=== PATIENT | male | born 1980 | race Caucasian/White ===

== ENCOUNTER 2022-06-30 08:45 | Outpatient (CLI) | payer BC, SELFPAY ==
[2022-06-30 09:39] LABS: Basophils Absolute Auto 0.1 K/mm3 (0.0-0.1); Basophils Percent Auto 0.7 % (0.2-1.2); Eosinophils Absolute Auto 0.3 K/mm3 (0-0.3); Hematocrit 47.4 % (42.0-52.0); Hemoglobin 15.5 g/dL (14.0-18.0); Immature Granulocyte Absolute 0.03 K/mm3 (0.00-0.031); Immature Granulocyte Percent A 0.4 % (0-0.5); Lymphocytes Absolute Auto 2.43 K/mm3 (0.9-3.2); Lymphocytes Percent Auto 29.7 % (18.3-44.2); Mean Corpuscular HGB Conc 32.7 g/dl (32-36); Mean Corpuscular Hemoglobin 27.5 pg (26-34); Mean Corpuscular Volume 84.2 fl (80-100); Monocytes Absolute Auto 0.7 K/mm3 (0.1-0.6); Monocytes Percent Auto 8.2 % (2.6-8.5); Neutrophils Absolute Auto 4.7 K/mm3 (1.3-6.7); Platelet Count Result 225 k/mm3 (150-375); Red Blood Count 5.63 M/mm3 (4.6-6.20); Red Cell Distribution Width 12.4 % (11.5-14.5); White Blood Count 8.2 K/mm3 (4.5-10.0)
[2022-06-30 09:51] LABS: Alanine Aminotransferase 33 U/L (6-50); Albumin Level 5.1 g/dL (3.5-5.1); Alkaline Phosphatase 97 U/L (38-126); Anion Gap 12 mmol/L (8-16); Aspartate Amino Transferase 28 U/L (17-59); Bilirubin,Total 0.7 mg/dL (0.2-1.3); Blood Urea Nitrogen 15 mg/dL (9-20); Calcium 9.1 mg/dL (8.4-10.2); Carbon Dioxide 29 mmol/L (22-30); Chloride 95 mmol/L (98-107); Cholesterol 226 mg/dL (0-200); Estimated Glomerular Filt Rate > 60; Glucose 98 mg/dL (65-110); HDL Direct 40 mg/dL; Potassium 4.2 mmol/L (3.4-5.0); Sodium 136 mmol/L (137-145); Triglycerides 179 mg/dL (<150)
[2022-06-30 10:02] LABS: LDL Cholesterol Direct 135 mg/dL
== END 2022-06-30 08:46 | disposition home or self-care (01) ==
PROVIDERS: PCP Family Medicine; Visit Provider Family Medicine
DX: I10 Essential (primary) hypertension (principal); E03.9 Hypothyroidism, unspecified; E78.2 Mixed hyperlipidemia
CPT/HCPCS: 36415; 80053; 80061; 84443; 85025

== ENCOUNTER 2022-10-21 08:13 | Outpatient (CLI) | payer BC, SELFPAY ==
[2022-10-21 10:09] LABS: Alanine Aminotransferase 25 U/L (6-50); Albumin Level 4.8 g/dL (3.5-5.1); Alkaline Phosphatase 96 U/L (38-126); Anion Gap 7 mmol/L (8-16); Aspartate Amino Transferase 25 U/L (17-59); Bilirubin,Total 0.8 mg/dL (0.2-1.3); Blood Urea Nitrogen 25 mg/dL (9-20); Calcium 8.4 mg/dL (8.4-10.2); Carbon Dioxide 27 mmol/L (22-30); Chloride 102 mmol/L (98-107); Cholesterol 216 mg/dL (0-200); Estimated Glomerular Filt Rate > 60; Glucose 96 mg/dL (65-110); HDL Direct 40 mg/dL; Potassium 4.1 mmol/L (3.4-5.0); Sodium 136 mmol/L (137-145); Triglycerides 78 mg/dL (<150)
[2022-10-21 10:20] LABS: LDL Cholesterol Direct 127 mg/dL
== END 2022-10-21 08:14 | disposition home or self-care (01) ==
PROVIDERS: PCP Family Medicine; Visit Provider Family Medicine
DX: I10 Essential (primary) hypertension (principal); E78.2 Mixed hyperlipidemia
CPT/HCPCS: 36415; 80053; 80061

== ENCOUNTER 2025-03-22 09:51 | Outpatient (CLI) | payer BC, SELFPAY ==
--- OUTSIDE RECORDS SUMMARY | 2025-03-22 09:54 | XMS_ITS | Continuity of Care Document ---
Author Name [facility] Organization [facility] Care Team Providers Care Rn Cardiovascular Name Role Phone [facility] Unavailable Unavailable Problems Combined list of problems from Department of Defense and Veterans Affairs facilities. It does not include entries that were removed or entered in error. Problem Status Onset Date Problem Type Date of Resolution Comments Source Adjustment Disorder with mixed Anxiety and depressed mood (ICD-9-CM 309.28) Active Condition [facility] Anxiety disorder Active Condition . [facility] Chest pain (SNOMED CT 72592906) Active Condition [facility] Irritability (ICD-9-CM 799.22) Active Condition [facility] Osteoarthritis * (ICD-9-CM 715.90) Active Condition [facility] Smoker (SNOMED CT 92971031) Active Condition [facility] Patient Education - Injury Prevention Active Condition [facility] visit for: ears / hearing exam Active Condition [facility] visit for: routine eye exam Active Condition [facility] Antibody Immunization Response Active Condition [facility] visit for: laboratory Active Condition [facility] visit for: screening exam pulmonary tuberculosis Active Condition [facility] Vaccines Prophylactic Need Against Bacterial Diseases Inactive Condition [facility] Vaccines Prophylactic Need Against Td Inactive Condition [facility] visit for: services physical Active Condition [facility] ASSESS PATIENT CONDITION WORK-RELATED OCCUPATIONAL DISEASE Active Condition [facility] PARTNER RELATIONAL PROBLEM Inactive Condition [facility] PARENT / CHILD PROBLEM Inactive Condition [facility] Patient Education - HIV Inactive Condition [facility] visit for: screening exam infectious disease Active Condition [facility] PATELLOFEMORAL SYNDROME Active Condition [facility] PATELLOFEMORAL SYNDROME RIGHT Active Condition paperwork completed [facility] ILIOTIBIAL BAND FRICTION SYNDROME Active Condition [facility] COMMON COLD Inactive Condition A-Pt wit h viral URI symptomsP-Will give decong/antihist for symptomatic treatment-Throa t cx done will await results and treat if needed [facility] visit for: screening exam ear disorders Inactive Condition [facility] Blood Pressure Isolated Elevated Inactive Condition 5 day BP check [facility] NICOTINE DEPENDENCE Inactive Condition referred to smoking cessation. [facility] GUM NEOPLASM - LOWER GUM Inactive Condition [facility] TENDONITIS ROTATOR CUFF Active Condition PT EDUCATED. STEROID INJECTION TODAY.SHOULDER REST X 7-10 DAYS, THEN RESUME THERAPY.F/U 2-3 WEEKS FOR RE-EVALUATION. DoD Other Physical Therapy Active Condition [facility] CLOSED FRACTURE OF CARPAL BONE(S) - SCAPHOID Active Condition Proximal pole, non-union, asymptomatic at this time [facility] WRIST SPRAIN Inactive Condition [facility] DoD Anticipatory Guidance: Tobacco Use Inactive Condition [facility] Allergies, Adverse Reactions, Alerts Combined list of allergies from Department of Defense and Veterans Affairs facilities. It does not include entries that were removed or entered in error. Substance Category Reaction Severity Reaction type Status Date Reported Comments Source No Known Allergies Drug allergy (disorder) active 06/07/2007 [facility] Immunizations Combined list of available immunizations from the Department of Defense and Veterans Affairs facilities. Immunization Series Date Given Administered By Site Reaction Lot Number CVX Code Drug Buildings Painter Status Comments Source TDAP 2010 115 complet ed [facility] influenza virus vaccine, split virus (incl. purified surface antigen)-reti red CODE 1 2006 [id number] [employer] (SKB) complet ed influenza virus vaccine, split virus (incl. purified surface antigen)- retired CODE Do[facility] influenza virus vaccine, split virus (incl. purified surface antigen)-reti red CODE 0 2004 UNKNOWN 15 Unknown (UNK) comple t ed influenza virus vaccine, split virus (incl. purified surface antigen)- retired CODE DoD meningococcal polysaccharid e vaccine (MPSV4) 0 2004 UNKNOWN 32 Unknown (UNK) comple t ed meningoco ccal polysacch aride vaccine (MPSV4) DoD influenza virus vaccine, split virus (incl. purified surface antigen)-reti red CODE 0 2002 UNKNOWN 15 Unknown (UNK) comple t ed influenza virus vaccine, split virus (incl. purified surface antigen)- retired CODE DoD anthrax vaccine 5 2002 [id number] [employer] [place] ([facility]) complet ed anthrax vaccine DoD anthrax vaccine 5 2002 UNKNOWN 24 Unknown (UNK) comple t ed anthrax vaccine DoD typhoid Vi capsular polysaccharid e vaccine 1 2002 UNKNOWN 101 Unknown (UNK) comple t ed typhoid Vi capsular polysacch aride vaccine DoD vaccinia (smallpox) vaccine 1 2002 UNKNOWN 75 Unknown (UNK) comple t ed vaccinia (smallpox ) vaccine DoD vaccinia (smallpox) vaccine 1 2002 UNKNOWN 75 Unknown (UNK) comple t ed vaccinia (smallpox ) vaccine DoD anthrax vaccine 4 2001 UNKNOWN 24 Unknown (UNK) comple t ed anthrax vaccine DoD typhoid vaccine, parenteral, other than acetone-kille d, dried 0 2000 UNKNOWN 41 Unknown (UNK) comple t ed typhoid vaccine, parentera l, other than acetone-k illed, dried DoD anthrax vaccine 4 1999 UNKNOWN 24 Unknown (UNK) comple t ed anthrax vaccine DoD hepatitis B vaccine, adult dosage 3 1998 UNKNOWN 43 Unknown (UNK) comple t ed hepatitis B vaccine, adult dosage DoD hepatitis B vaccine, adult dosage 3 1998 UNKNOWN 43 Unknown (UNK) comple t ed hepatitis B vaccine, adult dosage DoD hepatitis B vaccine, adult dosage 2 1998 UNKNOWN 43 Unknown (UNK) comple t ed hepatitis B vaccine, adult dosage DoD hepatitis B vaccine, adult dosage 1 1998 UNKNOWN 43 Unknown (UNK) comple t ed hepatitis B vaccine, adult dosage DoD hepatitis A vaccine, adult dosage 2 1998 UNKNOWN 52 Unknown (UNK) comple t ed hepatitis A vaccine, adult dosage DoD hepatitis A vaccine, adult dosage 2 1998 UNKNOWN 52 Unknown (UNK) comple t ed hepatitis A vaccine, adult dosage DoD anthrax vaccine 3 1998 UNKNOWN 24 Unknown (UNK) comple t ed anthrax vaccine DoD anthrax vaccine 2 1998 UNKNOWN 24 Unknown (UNK) comple t ed anthrax vaccine DoD anthrax vaccine 2 1998 UNKNOWN 24 Unknown (UNK) comple t ed anthrax vaccine DoD anthrax vaccine 1 1998 UNKNOWN 24 Unknown (UNK) comple t ed anthrax vaccine DoD hepatitis A vaccine, adult dosage 1 1997 UNKNOWN 52 Unknown (UNK) comple t ed hepatitis A vaccine, adult dosage DoD yellow fever vaccine 0 1997 UNKNOWN 37 Unknown (UNK) comple t ed yellow fever vaccine DoD trivalent poliovirus vaccine, live, oral 1 1997 UNKNOWN 02 Unknown (UNK) comple t ed trivalent polioviru s vaccine, live, oral DoD tetanus and diphtheria toxoids, adsorbed, preservative free, for adult use (2 Lf of tetanus toxoid and 2 Lf of diphtheria toxoid) 0 1997 UNKNOWN 09 Unknown (UNK) comple t ed tetanus and diphtheri a toxoids, adsorbed, preservat jennifer free, for adult use (2 Lf of tetanus toxoid and 2 Lf of diphtheri a toxoid) DoD meningococcal polysaccharid e vaccine (MPSV4) 0 1997 UNKNOWN 32 Unknown (UNK) comple t ed meningoco ccal polysacch aride vaccine (MPSV4) DoD yellow fever vaccine 0 1997 UNKNOWN 37 Unknown (UNK) comple t ed yellow fever vaccine DoD hepatitis A vaccine, adult dosage 1 1997 UNKNOWN 52 Unknown (UNK) comple t ed hepatitis A vaccine, adult dosage DoD poliovirus vaccine, unspecified formulation 1 1997 UNKNOWN 89 Unknown (UNK) comple t ed polioviru s vaccine, unspecifi ed formulati on DoD measles, mumps and rubella virus vaccine 1 1997 UNKNOWN 03 Unknown (UNK) comple t ed measles, mumps and rubella virus vaccine DoD meningococcal polysaccharid e vaccine (MPSV4) 0 1997 UNKNOWN 32 Unknown (UNK) comple t ed meningoco ccal polysacch aride vaccine (MPSV4) DoD Encounters Combined list of: 1) Encounters from Department of Veterans Affairs facilities going backup to the last 18 months, not all VA inpatient encounters are included; 2) Encounters from the Department of Defense facilities going backup to 280 months. Location Location Details Encounter Type Encounter Number Reason For Visit Attending Provider ADM Date DC Date Status Disposition Source [facility](Bl dg [facility]) OUTPATIENT [id number] Tobacco Cessati on HANSEL Cordova BETSEY Hou 09/29 Released w/o Limitations [facility]( Bldg 4-[facility] ess) [facility](Sp med H1) OUTPATIENT [id number] left wrist LYNARSALAN S 01/07 Released with Work/Duty Limitations [facility]( Spmed H1) [facility](Sp med H1) OUTPATIENT [id number] ANA ROCK 01/17 Released with Work/Duty Limitations [facility]( Spmed H1) [facility](Ph ysical Therapy-B ldg H1) OUTPATIENT [id number] DAGO RIVERA 01/20 Released with Work/Duty Limitations [facility]( Physica l Therapy -Bldg H1) [facility](Sp med H1) OUTPATIENT [id number] F/U RTC TENDONI TIS ANA ROCK 01/20 Released with Work/Duty Limitations [facility]( Spmed H1) [facility] FE) OUTPATIENT [id number] ABCESS IN MOUTH DENNIS ELISE G 09/22 Released w/o Limitations [facility] FE) [facility](Hearing Conservat ion FE) OUTPATIENT [id number] Ear plugs REGLA PLASENCIA N 09/22 Released w/o Limitations [facility](Hea ring Conserv ation FE) [employer] Just[facility] AMES [place] [facility] [place] [place] OUTPATIENT [id number] not feeling well/ph # NAV HAINES 04/26 Released w/o Limitations [employer] [facility] [place] [facility] [place] [facility] Justen AMES ([facility] [facility] [place] OUTPATIENT [id number] right knee/ph # SHINE MURRELL 05/24 Released w/o Limitations [employer] [facility] [facility] ([facility] [facility] [place] [place] [facility] AMES ([facility] [facility] [place]) OUTPATIENT [id number] running issues MEREDITH BARBARA Adore 06/07 Released w/o Limitations [employer] [facility] [facility] ([facility] [facility] [place] [place] [facility] AM[facility] ([facility]Phy sical Therapy) OUTPATIENT [id number] PATELLO FEMORAL SYNDROM E RIGHT ELIUD HOPKINS 06/12 Released w/o Limitations [employer] Justen AMES ([facility]P hysical Therapy ) [place] OUTPATIENT [id number] HIV Test YEN RIVERA Timothy 06/16 Released w/o Limitations [place] [place] OUTPATIENT [id number] DEMOB/D D 2796 WITH PHA/TD/ MGC/PPD /HIV/VA NIKKOA T/PARKER N SOPHIA REYES 02/22 Released w/o Limitations [place] [place]) OUTPATIENT [id number] Annual Hearing Test WILBER OLSON 02/22 Released w/o Limitations [place] [facility]ion Ex[place] [facility] Outpatient Encounter [id number] 11/20 [facility] Procedures Combined list of: 1) Procedures from Department of Veterans Affairs facilities going back up to thelast 18 months, not all VA non-surgical procedures are included; 2) All procedures from the Department of Defense facilities. Procedure Procedure Type Code Date Perfomer Comments Khadar flores No data is provided for this section because a [facility] internal system error occurred when retrieving data. A future request for this document may succe fully include data for this section if the system i ue has been resolved. DoD Social History Combined list of available smoking, tobacco, and other social history from Department of Defense and Veterans Affairs facilities. Social History Type Response Date Comment Khadar flores Tobacco smoking status NHIS TOBACCO OFFERRED PT MEDS (PROVIDER) 07/25/2012 [facility] History of tobacco use CURRENT TOBACCO USER 07/25/2012 [facility] History of tobacco use LIFETIME NON-USER OF TOBACCO 03/22/2011 [facility] This section is an empty social history section. [facility] Advance Directives List of completed, amended, or rescinded Advance Directives on record at Department of Veterans Affairs facilities. An actual copy of the Directive is not included. Date Advance Directive Provider Source 03/29/2011 ADVANCE DIRECTIVE DISCUSSION JORGE HUMPHRIES [facility]
--- OUTSIDE RECORDS SUMMARY | 2025-03-22 09:54 | XMS_ITS | Clinical Summary ---
Author Organization [address] Address [address] [place] [address] Care Team Providers Care Backend Java Developer Name Role Phone Bethany Mock MD Primary Care Provider Allergies No known active allergies Medications esomeprazole DR (NexIUM) 40 mg capsule Take 1 capsule (40 mg total) by mouth daily before breakfast 30 capsule 4 Active benzonatate (TESSALON) 200 mg capsuleIndicati ons:Acute bacterial sinusitis Take 1 capsule (200 mg total) by mouth nightly 15 capsule 5 Active Active Problems Problem Noted Date Diagnosed Date Anxiety disorder 02/14/2014 Overview (12/01/2016): Anxiety disorder Medical History Medical History Date Comments Hx Other Medical Old Rt wrist Fx Anxiety disorder Anxiety Family History Medical History Relation Name Comments Other Brother 2 Alive and well; Coronary artery disease Father 2 Gisselle nary artery disease; Other Father 2 Alive and well; Stroke Father 2 Stroke; Cancer Mother 2 Cancer, unknown ; Diabetes Mother 2 Diabetes mellit us; Hypertension Mother 2 Hypertension; Other Mother 2 Alive and well; Heart disease Sister Cardiovascular disease; Relation Name Status Comments Brother 1 Alive Brother 2 Father 1 Alive Father 2 Mother 1 Alive Mother 2 Sister Social History Tobacco Use Types Packs/Day Years Used Date Smoking Tobacco: Former Cigarettes Q uit: 08/28/2006 Tobacco Cessation:Counseling Given: Not Answered Comments:Smoking History Packs/day: 1 Packs Alcohol Use Standard Drinks/Week Comments No 0 (1 standard drink = 0.6 oz pur e alcohol) Personal Safety Answer Date Recorded Have you ever been in or are you currently in a harmful physical or emotional relationship or is someone making you feel afraid or unsafe? Denies 11/21/2023 Sex and Gender Information Value Date Recorded Sex Assigned at Not on file Legal Sex Male 12:34 AM REGIONAL TRANSFER LIAISON Gender Identity Not on file Sexual Orientation Not on file Obstetrics History Last Filed Vital Signs Vital Sign Reading Time Taken Comments Blood Pressure 118/74 10/12/2024 3:47 PM REGIONAL TRANSFER LIAISON Pulse 72 10/12/2024 3:47 PM REGIONAL TRANSFER LIAISON Temperature 36.9 C (98.4 F) 10/12/2024 3:47 PM REGIONAL TRANSFER LIAISON Respiratory Rate 18 10/12/2024 3:47 PM REGIONAL TRANSFER LIAISON Oxygen Saturation 98% 10/12/2024 3:47 PM REGIONAL TRANSFER LIAISON Inhaled Oxygen Concentration - - Weight 114.8 kg (253 lb) 10/12/2024 3:47 PM REGIONAL TRANSFER LIAISON Height 188 cm (6' 2) 10/12/2024 3:47 PM REGIONAL TRANSFER LIAISON Body Mass Index 32.48 10/12/2024 3:47 PM REGIONAL TRANSFER LIAISON Plan of Treatment Health Maintenance Due Date Last Done Comments Colon Cancer Screening-Colonoscopy 1980 Depression Screening 1980 Hepatitis C Screening 1980 DTaP/Tdap/Td Vaccine (1 - Tdap) 01/10/1991 Varicella Vaccines (1 of 2 - 13+ 2-dose series) 01/10/1993 Hepatitis B Screening 01/10/1998 Regular Well Visit/Exam 18-64 01/10/1998 HPV Vaccines (1 - 3-dose SCD M series) 01/10/2007 Influenza Vaccine (#1) 2025 Pneumococcal vaccine <65 Aged Out No longer eligible based on patient's age to complete this topic Insurance [facility] FED[employer] Care Teams Backend Java Developer Relationship Specialty Start Date End Date Bethany Mock MD [address] [facility] [address] [place] [address] PCP - General Family Medicine 10/12/24
--- OUTSIDE RECORDS SUMMARY | 2025-03-22 09:54 | XMS_ITS | Referral Summary ---
Author Organization [place] [facility] Address [address] [place] [address] Care Team Providers Care Glue Cook Name Role Phone Bethany Mock MD Primary [...] Anxiety disorder 02/14/2014 Overview (12/01/2016): Anxiety disorder Social History Tobacco Use Types Packs/Day Years [...] on file Legal Sex Male 12:34 AM MANAGER SERVICING Gender Identity Not on file Sexual Orientation Not on file Last Filed Vital Signs Vital Sign Reading Time Taken Comments Blood Pressure 118/74 10/12/2024 3:47 PM MANAGER SERVICING Pulse 72 10/12/2024 3:47 PM MANAGER SERVICING Temperature 36.9 C (98.4 F) 10/12/2024 3:47 PM MANAGER SERVICING Respiratory Rate 18 10/12/2024 3:47 PM MANAGER SERVICING Oxygen Saturation 98% 10/12/2024 3:47 PM MANAGER SERVICING Inhaled Oxygen Concentration - - Weight 114.8 kg (253 lb) 10/12/2024 3:47 PM MANAGER SERVICING Height 188 cm (6' 2) 10/12/2024 3:47 PM MANAGER SERVICING Body Mass Index 32.48 10/12/2024 3:47 PM MANAGER SERVICING Plan of Treatment Not on file Insurance [facility] FEDER[facility] Care Teams Glue Cook Relationship Specialty Start Date End Date Bethany Mock MD [address] [facility] [address] [place] [address] PCP - General Family Medicine 10/12/24
[2025-03-22 10:48] LABS: Hematocrit 45.6 % (42.0-52.0); Hemoglobin 14.9 g/dL (14.0-18.0); Mean Corpuscular HGB Conc 32.7 g/dl (32-36); Mean Corpuscular Hemoglobin 27.0 pg (26-34); Mean Corpuscular Volume 82.6 fl (80-100); Platelet Count Result 219 k/mm3 (150-375); Red Blood Count 5.52 M/mm3 (4.6-6.20); White Blood Count 7.0 K/mm3 (4.5-10.0)
[2025-03-22 10:51] LABS: Add Urine Microscopic? YES; Appearance Urine Cloudy (Clear); Glucose Urine UA Negative (Negative); Leukocyte Esterase Ur Negative LEU/UL (Negative); Nitrate Urine Negative (Negative); Non Pathogenic Casts 0-2; Specific Grav Ur 1.012 (1.001-1.035)
[2025-03-22 11:08] LABS: Alanine Aminotransferase 28 U/L (6-50); Albumin Level 4.9 g/dL (3.5-5.1); Alkaline Phosphatase 101 U/L (38-126); Anion Gap 7 mmol/L (4-12); Aspartate Amino Transferase 31 U/L (17-59); Bilirubin,Total 0.8 mg/dL (0.2-1.3); Blood Urea Nitrogen 12 mg/dL (9-20); Calcium 9.2 mg/dL (8.4-10.2); Carbon Dioxide 25 mmol/L (22-30); Chloride 100 mmol/L (98-107); Cholesterol 244 mg/dL (0-200); Estimated Glomerular Filt Rate > 60; Glucose 92 mg/dL (65-110); HDL Direct 47 mg/dL; Potassium 4.6 mmol/L (3.4-5.0); Sodium 132 mmol/L (137-145); Total Protein 8.4 g/dL (6.3-8.2); Triglycerides 187 mg/dL (<150)
[2025-03-22 11:45] LABS: Thyroid Stimulating Hormone 1.180 uIU/mL (0.465-4.680)
== END 2025-03-22 09:52 | disposition home or self-care (01) ==
PROVIDERS: PCP Family Medicine; Visit Provider Physician Assistant
DX: Z00.00 Encounter for general adult medical examination without abnormal findings (principal); I10 Essential (primary) hypertension
CPT/HCPCS: 36415; 80053; 80061; 81001; 84443; 85027